=== PATIENT | male | born 1970 | race African-American/Black ===

== ENCOUNTER 2021-05-31 06:00 | Day surgery (SDC) | payer BC ==
[2021-05-31 06:45] VITALS: BMI 40.8
[2021-05-31] MEDS ORDERED: BUPIVACAINE HCL 100 ML ONE (07:11)
[2021-05-31] MEDS ORDERED: PROPOFOL 20 ML ONE ×2 (07:16)
[2021-05-31] MEDS ORDERED: SUCCINYLCHOLINE CHLORIDE 200 MG/10 ML SYRINGE ONE (07:16)
[2021-05-31] MEDS ORDERED: MIDAZOLAM HCL 2 MG/2 ML SINGLE DOSE VIAL ONE (07:16)
[2021-05-31] MEDS ORDERED: oxyCODONE HCL 5 MG TABLET PO PRN ×2 (07:17→08:20)
[2021-05-31] MEDS ORDERED: ACETAMINOPHEN 325 MG TABLET (FP) PO PRN (07:18)
[2021-05-31] MEDS ORDERED: BUPIVACAINE HCL 50 ML ONE (07:28)
[2021-05-31] MEDS ORDERED: EPINEPHrine/PF 1 MG/1 ML (1:1,000) AMPULE ONE (07:40)
[2021-05-31] MEDS ORDERED: BUPIVACAINE HCL/PF 2.5 MG/ML - 30 ML VIAL IJ ONE (07:40)
[2021-05-31] MEDS ORDERED: ONDANSETRON 4 MG/2 ML VIAL IVPUSH PRN (08:20)
[2021-05-31] MEDS ORDERED: ACETAMINOPHEN 1000 MG/100 ML VIAL IVPB ONE (08:20)
[2021-05-31] MEDS ORDERED: LACTATED RINGERS SOLUTION 1,000 ML IV SCH (08:30)
[2021-05-31] MEDS ORDERED: ACETAMINOPHEN INJECTION 100 ML IVPB ONE (09:10)
[2021-05-31 12:21] VITALS: PULSE 79; TEMP 98
[2021-05-31 17:17] VITALS: BP 145/89
== END 2021-05-31 17:00 | disposition home or self-care (01) ==
LOC: FASU 06:00
PROVIDERS: ATTEND Orthopaedic Surgery
PROC: 0SBC4ZZ Excision of Right Knee Joint, Percutaneous Endoscopic Approach (ICD-10-PCS; 2021-05-31)
PROC: 0SBC4ZZ Excision of Right Knee Joint, Percutaneous Endoscopic Approach (ICD-10-PCS; principal; 2021-05-31 07:58)
DX: S83.241A Other tear of medial meniscus, current injury, right knee, initial encounter (principal); M17.11 Unilateral primary osteoarthritis, right knee; M65.861 Other synovitis and tenosynovitis, right lower leg; M22.41 Chondromalacia patellae, right knee; X58.XXXA Exposure to other specified factors, initial encounter; Y93.9 Activity, unspecified; Y92.9 Unspecified place or not applicable
CPT/HCPCS: 94760; J0131

== ENCOUNTER 2025-02-19 12:44 | Emergency (ER) | payer BC ==
[2025-02-19 12:53] VITALS: BP 131/65; PULSE 85; RESP 20; TEMP 97.9; BMI 37.0
[2025-02-19 14:02] LABS: ABSOLUTE IMMATURE GRANULOCYTES 0.04 x10^3/uL (0.0-0.031); BASOPHILS # 0.07 x10^3/uL (0.01-0.08); EOSINOPHIL % 6.5 % (0.8-7.0); EOSINOPHILS # 0.65 x10^3/uL (0.04-0.54); MCHC 32.6 g/dl (32.3-36.5); MEAN CELL VOLUME 84.1 fl (79.0-92.2); MEAN PLT VOLUME 9.3 fl (9.4-12.4); MONOCYTE # 0.44 x10^3/uL (0.30-0.82); MONOCYTE % 4.4 % (5.3-12.2); RDW 15.0 % (12.2-16.1)
[2025-02-19 14:24] LABS: GLUCOSE,RANDOM 115.0 mg/dL (74-106)
[2025-02-19 14:25] LABS: CO2 25.0 mmol/L (21-32); TOT PROT 6.7 g/dl (6.4-8.2)
[2025-02-19 14:27] LABS: ALK PHOS 111.0 U/L (40-150)
[2025-02-19 14:30] LABS: CREATININE 0.86 mg/dL (0.55-1.3); SGOT/AST 58.0 U/L (5-34); SGPT/ALT 66.0 U/L (0-55)
[2025-02-19 14:46] LABS: HIV INTERPRETATION NEGATIVE (NEGATIVE)
[2025-02-19 14:50] LABS: ERYTHROCYTE SEDIMENTATION RATE 7 mm/hr (0-20)
[2025-02-19 15:33] LABS: HCV DIAGNOSTIC IN-HOUSE W/RFLX REACTIVE (NONREACTIVE)
== END 2025-02-19 15:26 | disposition home or self-care (01) ==
LOC: JER 12:44
DX: S91.101A Unspecified open wound of right great toe without damage to nail, initial encounter (principal); S91.104A Unspecified open wound of right lesser toe(s) without damage to nail, initial encounter; S91.105A Unspecified open wound of left lesser toe(s) without damage to nail, initial encounter; L84 Corns and callosities; X58.XXXA Exposure to other specified factors, initial encounter
CPT/HCPCS: 36415; 73630-TC-LT; 73630-TC-RT-FY; 80053; 85025; 85651; 86140; 86803; 87389; 87522; 93005; 93010; 99285-25